=== PATIENT | female | born 1975 | race Two or more races ===

== ENCOUNTER 2019-07-29 21:48 | Emergency (ER) | payer SELFPAY ==
[2019-07-29 22:41] LABS: BASO % 1 % (0-3); EOS # 0.1 x10^3/uL (0.0-0.7); EOS % 1 % (0-3); HEMOGLOBIN 11.9 g/dL (12.0-15.5); LYMPH # 0.9 x10^3/uL (1.0-4.8); LYMPH % 21 % (24-48); MEAN CORPUSCULAR HEMOGLOBIN 25 pg (25-35); MEAN CORPUSCULAR HGB CONC 33 g/dL (31-37); MEAN CORPUSCULAR VOLUME 76 fL (79-100); MONO # 0.7 x10^3/uL (0.0-1.1); MONO % 17 % (0-9); NEUT # 2.7 x10^3/uL (1.8-7.7); NEUT % 61 % (31-73); PLATELET COUNT 198 x10^3/uL (140-400); RED BLOOD COUNT 4.75 x10^6/uL (3.50-5.40); RED CELL DISTRIBUTION WIDTH 14.6 % (11.5-14.5); WHITE BLOOD COUNT 4.4 x10^3/uL (4.0-11.0)
[2019-07-29 22:51] LABS: CREATININE 0.8 mg/dL (0.6-1.0); GFR 77.6; POTASSIUM 3.9 mmol/L (3.5-5.1)
[2019-07-29 23:01] LABS: ALBUMIN 3.5 g/dL (3.4-5.0); ALBUMIN/GLOBULIN RATIO 0.9 (1.0-1.7); TOTAL BILIRUBIN 0.2 mg/dL (0.2-1.0); TOTAL PROTEIN 7.6 g/dL (6.4-8.2)
--- NOTE | 2019-07-29 23:02 | RAD ---
Study: CHEST AP ONLY Indication: Chest pain. Comparison: 05/22/2007 Findings: Prominence of the cardiomediastinal silhouette is favored mostly related to low lung volumes. No central vascular congestion. No lobar consolidation, large effusion or pneumothorax. Impression: Low lung volumes with resultant bronchovascular crowding and apparent prominence of the cardiomediastinal silhouette. No acute abnormality is identified. Electronically signed by: BO VANCE MD (07/29/2019 10:59 PM) [facility]
[2019-07-29] MEDS ORDERED: GUAI12003 PO (23:42)
--- NOTE | 2019-07-29 23:43 | PHYS DOC ---
Past Medical History Alcohol Use: None Adult General Chief Complaint Chief Complaint: CHEST PAIN HPI HPI Patient is a 43 year old female who presents with multiple medical complaints. Patient reports dry nonproductive cough, chest tightness and paresthesias of left arm. Symptom onset began 3 days ago. Patient also reports tingling of upper and lower extremities. Denies nausea vomiting, fever, sore throat, abdominal and flank pain. No other acute symptoms or plans. Patient's patient is [place] speaking and translation was assisted by the patient's daughters. [] Review of Systems Review of Systems Review symptoms as per history of present illness. All other review symptoms are negative. All other systems were reviewed and found to be within normal limits, except as documented in this note. Current Medications Current Medications Current Medications Medications (Trade) Dose Ordered Sig/Cha Start Time Stop Time Status Last Admin Dose Admin Lorazepam (Ativan Inj) 0.5 mg 1X ONCE 07/29/19 23:00 07/29/19 23:01 DC 07/29/19 22:43 0.5 MG Allergies Allergies Allergies Coded Allergies Type Severity Reaction Last Updated Verified No Known Drug Allergies 07/29/19 No Physical Exam Physical Exam Constitutional: Well developed, well nourished, no acute distress, non-toxic appearance. [] HENT: Normocephalic, atraumatic, bilateral external ears normal, oropharynx moist, no oral exudates, nose normal. [] Eyes: PERRLA, EOMI, conjunctiva normal, no discharge. [] Neck: Normal range of motion, no tenderness, supple, no stridor. [] Cardiovascular:Heart rate regular rhythm, no murmur, negative Homans signs [] Lungs & Thorax: Bilateral breath sounds clear to auscultation [] Abdomen: Bowel sounds normal, soft, no tenderness. [] Skin: Warm, dry, no erythema, no rash. [] Back: No tenderness, no CVA tenderness. [] Extremities: No tenderness, no cyanosis, no clubbing, ROM intact, no edema. [] Neurologic: Alert and oriented X 3, normal motor function, normal sensory function, no focal deficits noted. [] Psychologic: Affect anxious, judgement normal, mood normal. [] Current Patient Data Vital Signs Vital Signs Date Time Temp Pulse Resp B/P (MAP) Pulse Ox O2 Delivery O2 Flow Rate FiO2 07/29/19 21:50 98.1 95 26 169/83 (111) 99 Room Air 98.1 Lab Values Laboratory Tests Test 07/29/19 22:30 White Blood Count 4.4 x10^3/uL (4.0-11.0) Red Blood Count 4.75 x10^6/uL (3.50-5.40) Hemoglobin 11.9 g/dL (12.0-15.5) L Hematocrit 36.0 % (36.0-47.0) Mean Corpuscular Volume 76 fL (79-100) L Mean Corpuscular Hemoglobin 25 pg (25-35) Mean Corpuscular Hemoglobin Concent 33 g/dL (31-37) Red Cell Distribution Width 14.6 % (11.5-14.5) H Platelet Count 198 x10^3/uL (140-400) Neutrophils (%) (Auto) 61 % (31-73) Lymphocytes (%) (Auto) 21 % (24-48) L Monocytes (%) (Auto) 17 % (0-9) H Eosinophils (%) (Auto) 1 % (0-3) Basophils (%) (Auto) 1 % (0-3) Neutrophils # (Auto) 2.7 x10^3/uL (1.8-7.7) Lymphocytes # (Auto) 0.9 x10^3/uL (1.0-4.8) L Monocytes # (Auto) 0.7 x10^3/uL (0.0-1.1) Eosinophils # (Auto) 0.1 x10^3/uL (0.0-0.7) Basophils # (Auto) 0.0 x10^3/uL (0.0-0.2) D-Dimer (Mayuri) 0.52 ug/mlFEU (0.00-0.50) H Sodium Level 137 mmol/L (136-145) Potassium Level 3.9 mmol/L (3.5-5.1) Chloride Level 103 mmol/L (98-107) Carbon Dioxide Level 24 mmol/L (21-32) Anion Gap 10 (6-14) Blood Urea Nitrogen 12 mg/dL (7-20) Creatinine 0.8 mg/dL (0.6-1.0) Estimated GFR (Cockcroft-Gault) 77.6 BUN/Creatinine Ratio 15 (6-20) Glucose Level 160 mg/dL (70-99) H Calcium Level 9.0 mg/dL (8.5-10.1) Total Bilirubin 0.2 mg/dL (0.2-1.0) Aspartate Amino Transferase (AST) 23 U/L (15-37) Alanine Aminotransferase (ALT) 36 U/L (14-59) Alkaline Phosphatase 113 U/L (46-116) Troponin I Quantitative < 0.017 ng/mL (0.000-0.055) Total Protein 7.6 g/dL (6.4-8.2) Albumin 3.5 g/dL (3.4-5.0) Albumin/Globulin Ratio 0.9 (1.0-1.7) L Thyroid Stimulating Hormone (TSH) 1.452 uIU/mL (0.358-3.74) Laboratory Tests 07/29/19 22:30 Laboratory Tests 07/29/19 22:30 EKG EKG [EKG: reviewed] Radiology/Procedures Radiology/Procedures [CXR: NAD] Course & Med Decision Making Course & Med Decision Making Pertinent Labs and Imaging studies reviewed. (See chart for details) [ATypical chest pain, EKG lab and imaging reviewed. Symptoms fully resolved with Ativan. Suspect pleurisy with secondary anxiety reaction.Heart score 1. Will reat supportively with PCP follow-up. Return precautions reviewed] Dragon Disclaimer Dragon Disclaimer This electronic medical record was generated, in whole or in part, using a voice recognition dictation system. Departure Departure Impression: Primary Impression: Chest pain Additional Impression: Anxiety Disposition: 01 HOME, SELF-CARE Condition: STABLE Referrals: NO PCP (PCP) Patient Instructions: Anxiety and Panic Attacks, [id number], Chest Pain (Non specific)-Brief Additional Instructions: Please go home and rest. Take Mucinex for cough, Tylenol for pain. Return to the ED if new or concerning symptoms. Scripts Guaifenesin (MUCINEX) 1,200 Mg Tbmp.12hr 1 TAB PO BID for cough for 15 Days, #30 TAB 0 Refills Prov: CHANEL CORCORAN DO 07/29/19 Problem Qualifiers CHANEL CORCORAN DO Jul 29, 2019 23:43
[2019-07-29 23:51] LABS: INFLUENZA A PATIENT NEGATIVE (NEGATIVE)
[2019-07-29 23:52] LABS: INFLUENZA B PATIENT POSITIVE (NEGATIVE)
[2019-07-29 23:58] VITALS: BP 147/77
--- NOTE | 2019-07-30 07:26 | EKG ---
[facility] [address] [place] [address] Test Date: 2019-07-29 Test Time: 21:54:45 Pat Name: LEONID HAGER Department: Room: Gender: F Insurance Billing Specialist: : 1975 Requested By: CHANEL CORCORAN Order Number: [id number] Reading MD: Measurements Intervals [place] Rate: 84 P: MD: QRS: 86 QRSD: 86 T: 40 QT: 336 QTc: 400 Interpretive Statements IRREGULAR RHYTHM, NO P-WAVE FOUND T ABNORMALITY IN INFERIOR LEADS ABNORMAL ECG RI6.01 No previous ECG available for comparison
== END 2019-07-30 00:01 | disposition home or self-care (01) ==
LOC: ER 21:48
DX: R07.89 Other chest pain (principal); F41.9 Anxiety disorder, unspecified; R20.2 Paresthesia of skin; R05 Cough
CPT/HCPCS: 36415; 71045; 80053; 84443; 84484; 85025; 85379; 87804; 93005; 96374; 99285; J2060